=== PATIENT | male | born 1975 | race Caucasian/White ===

== ENCOUNTER 2021-08-30 13:16 | Emergency (ER) | payer OTHER, SELFPAY ==
[2021-08-30 13:24] VITALS: BP 142/82; PULSE 68; RESP 14; TEMP 36.7; O2SAT 100
[2021-08-30 13:40] VITALS: BP 142/82; PULSE 68; RESP 14; TEMP 36.7; O2SAT 100
--- NOTE | 2021-08-30 13:46 | ED.SKABFB ---
HPI - Skin/Abscess/Foreign Bdy General Chief complaint: Wound/Laceration Stated complaint: Skin Sore/Left Knee Time Seen by Provider: 08/30/21 13:38 Source: patient and RN notes reviewed Mode of arrival: ambulatory Limitations: no limitations History of Present Illness HPI narrative: 46-year-old male presents with concern for red, painful raised area on his inner left knee. He reports noticing the area several days ago and thought it might be a an ingrown hair, his pulled out a hair from the area. He denies fever, chills, malaise, sweats. Denies drainage from the area. Reports the pain radiates up and down the knee, denies joint pain MD complaint: abscess/boil Related Data Home Medications Medication Instructions Recorded Confirmed fluoxetine [Prozac] 20 mg PO DAILY 08/30/21 08/30/21 gabapentin 300 mg PO TID 08/30/21 08/30/21 guanfacine 1 mg PO DAILY 08/30/21 08/30/21 modafinil 100 mg PO QAM 08/30/21 08/30/21 quetiapine 200 mg PO HS 08/30/21 08/30/21 Allergies Allergy/AdvReac Type Severity Reaction Status Date / Time Penicillins Allergy Rash Verified 08/30/21 13:34 Review of Systems Review of Systems: CONSTITUTIONAL: Denies malaise, chills, sweats, or fever. CARDIOVASCULAR: Denies chest pain, palpitations, or edema. RESPIRATORY: Denies cough or dyspnea. GASTROINTESTINAL: Denies nausea, vomiting SKIN: Reports red painful raised area on the right knee MUSCULOSKELETAL: Denies joint pain or myalgia. NEUROLOGIC: Denies headache. All systems reviewed & are unremarkable except as noted in HPI and below PMFSH Comments At time of signature, agree with nursing past medical, surgical, social and family history. There is no relevant family history pertinent to the presenting complaint Exam Narrative: GENERAL: Well-appearing, well-nourished, and in no acute distress. HEAD: Normocephalic, atraumatic. EYES: PERRLA, conjunctivae clear ENT: Mucous membranes moist. NECK: Supple. No lymphadenopathy CHEST: Clear to auscultation. No respiratory distress. HEART: Regular rate and rhythm. SKIN: Warm, dry. 2 cm raised erythematous indurated area noted medial to the knee without joint involvement, surrounding tenderness, no fluctuation, small central scab NEURO: Alert and oriented x3. PSYCH: Normal mood and affect Course Course Emergency Course: Patient is aware of diagnosis, understands and agrees to treatment plan. Anticipatory guidance given. Patient agrees to follow-up as directed and is aware of reasons to seek care at the emergency department. Portions of this record may have been created with voice recognition software Vital Signs Vital signs: Vital Signs Temperature 98.1 F 08/30/21 13:24 Pulse Rate 68 08/30/21 13:24 Respiratory Rate 14 08/30/21 13:24 Blood Pressure 142/82 H 08/30/21 13:24 Pulse Oximetry 100 08/30/21 13:24 Temperature 98.1 F 08/30/21 13:40 Pulse Rate 68 08/30/21 13:40 Respiratory Rate 14 08/30/21 13:40 Blood Pressure 142/82 H 08/30/21 13:40 Pulse Oximetry 100 08/30/21 13:40 Reviewed. MDM - Skin/Abscess/Foreign Bdy MDM Narrative Medical decision making narrative: Exam findings show no acute concerns or changes; patient is non-toxic appearing and is in no distress. Patient is appropriate for outpatient treatment and follow-up. Differential Diagnosis Differential diagnosis: Likely abscess of skin or subcutaneous tissue, cellulitis, insect bites, impetigo and contact dermatitis Critical Care Time Critical Care Time Critical Care Time: No Discharge Plan Discharge Clinical Impression: Cellulitis Qualifiers: Site of cellulitis: extremity Site of cellulitis of extremity: lower extremity Laterality: left Qualified Code(s): L03.116 - Cellulitis of left lower limb Patient Disposition: Home, Self-Care Condition: Stable Instructions: Antibiotic Form, Cellulitis (ED) Additional Instructions: Please follow up with your Primary Care Doctor within 48-72 h
== END 2021-08-30 13:52 | disposition home or self-care (01) ==
PROVIDERS: Emergency Provider Nurse Practitioner; PCP Physician Assistant
DX: L03.116 Cellulitis of left lower limb (principal); Z86.19 Personal history of other infectious and parasitic diseases; F41.9 Anxiety disorder, unspecified; F32.A Depression, unspecified; F43.10 Post-traumatic stress disorder, unspecified
CPT/HCPCS: 99203; G0463